=== PATIENT | female | born 1925 | race Caucasian/White ===

== ENCOUNTER 2016-08-08 11:57 | Emergency (ER) | payer MEDICARE ==
--- NOTE | 2016-08-08 12:09 | ER Document Report ---
ED Medical Screen (RME) - General Stated Complaint: FALL/HEAD INJURY Notes: 89 yo female tripped and fell at home. hit mouth. has 1in lac to lower lip, through and through. no LOC. bleeding controlled with ice pack. pt on eliquis. hx/o SD, DVT and DM TRAVEL OUTSIDE OF THE [place] IN LAST 30 DAYS: No - Related Data Allergies/Adverse Reactions: No Known Allergies Allergy (Verified 10/27/14 17:22) Past Medical History - Past Medical History Cardiac Medical History: Reports: Hx Hypertension Denies: Hx Heart Attack Neurological Medical History: Denies: Hx Cerebrovascular Accident Endocrine Medical History: Reports: Hx Diabetes Mellitus Type 2 - Immunizations Hx Diphtheria, Pertussis, Tetanus Vaccination: Yes
--- NOTE | 2016-08-08 14:38 | ER Document Report ---
ED Fall - General Chief Complaint: Laceration Stated Complaint: FALL/HEAD INJURY Time seen by provider: 14:38 Mode of Arrival: Ambulatory Information source: Patient Notes: 89-year-old female was cleaning a coffee table and fell into it, presents to the emergency room with teeth soreness and a laceration to the lip. TRAVEL OUTSIDE OF THE [place] IN LAST 30 DAYS: No - HPI Occurred: Just prior to arrival Where: Home Context: Lost balance Associated symptoms: denies: Lost consciousness, Dazed/confused, Seizure, Difficulty breathing, Became dizzy/fainted, Blood in stool Location of injury/pain: Face Quality of pain: No pain Severity: None Pain Level: Denies - Related data Allergies/Adverse Reactions: No Known Allergies Allergy (Verified 10/27/14 17:22) Past Medical History - General Information source: Patient - Social History Smoking Status: Never Smoker Cigarette use (# per day): No Chew tobacco use (# tins/day): No Frequency of alcohol use: None Drug Abuse: None Lives with: Family Family History: Reviewed & Not Pertinent Patient has suicidal ideation: No Patient has homicidal ideation: No - Past Medical History Cardiac Medical History: Reports: Hx Hypertension Denies: Hx Heart Attack Neurological Medical History: Denies: Hx Cerebrovascular Accident Endocrine Medical History: Reports: Hx Diabetes Mellitus Type 2 Renal/ Medical History: Denies: Hx Peritoneal Dialysis Surgical Hx: Other - Noncontributory - Immunizations Hx Diphtheria, Pertussis, Tetanus Vaccination: Yes Review of Systems - Review of Systems Constitutional: denies: Chills, Fever EENT: See HPI Cardiovascular: No symptoms reported Respiratory: No symptoms reported Gastrointestinal: No symptoms reported Genitourinary: No symptoms reported Female Genitourinary: No symptoms reported Musculoskeletal: See HPI Skin: No symptoms reported Hematologic/Lymphatic: No symptoms reported Neurological/Psychological: No symptoms reported Physical Exam - Vital signs Vitals: Temp Pulse Resp BP Pulse Ox 98.0 F 70 18 119/58 L 98 08/08/16 12:40 08/08/16 12:40 08/08/16 12:40 08/08/16 12:40 08/08/16 12:40 Notes: Physical exam: GENERAL: 89-year-old female, alert and oriented 3 HEAD: Normocephalic. EYES: Pupils equal round and reactive to light, extraocular movements intact, sclera anicteric, conjunctiva are normal. ENT: Patient has a 4 cm laceration to the lip. The patient has a second laceration approximately 4 cm below the lower lip and the skin line. The lacerations do meet. The patient does complain of some tenderness to the incisors upper and lower. There is no obvious loose teeth or alveolar fractures by palpation. NECK: Normal range of motion, supple without lymphadenopathy. LUNGS: Breath sounds clear to auscultation bilaterally and equal. No wheezes rales or rhonchi. HEART: Regular rate and rhythm without murmurs, rubs or gallops. ABDOMEN: Soft, normoactive bowel sounds. No tenderness to palpation. No guarding, no rebound. No masses appreciated. EXTREMITIES: Normal range of motion, no pitting or edema. No clubbing or cyanosis. NEUROLOGICAL: Cranial nerves II through XII grossly intact. Normal speech, normal gait. PSYCH: Normal mood, normal affect. SKIN: As mentioned above under face Course - Vital Signs Vital signs: Temp Pulse Resp BP Pulse Ox 98.4 F 72 20 145/81 H 98 08/08/16 16:34 08/08/16 16:34 08/08/16 16:34 08/08/16 16:34 08/08/16 16:34 - Diagnostic Test Radiology reviewed: Image reviewed, Reports reviewed - CT of the head shows no acute bleed. CT of the face shows no obvious facial fractures. Procedures - Laceration/Wound Repair Face Time completed: 17:00 - laceration to the lip. Wound length (cm): 4 Wound's Depth, Shape: Linear Laceration pre-procedure: Chloraprep applied, Sterile drapes applied, Shur- Clens applied Anesthetic type: 1% Lidocaine Volume Anesthetic (mLs): 5 Wound explored: No foreign body removed Irrigated w/ Saline (mLs): 500 Wound Debrided: Minimal Wound Repaired With: Sutures Suture Size/Type: 5:0, Vicryl Number of Sutures: 7 Layer Closure?: No Post-procedure NV exam normal: Yes Complications: No Lower Face Time completed: 17:00 Wound length (cm): 4 Wound's Depth, Shape: Into muscle Laceration pre-procedure: Betadine prep applied, Chloraprep applied, Sterile drapes applied, Shur-Clens applied Anesthetic type: 1% Lidocaine Volume Anesthetic (mLs): 4 Wound explored: No foreign body removed Irrigated w/ Saline (mLs): 500 Wound Debrided: Minimal Wound Repaired With: Sutures, Dermabond Suture Size/Type: 6:0, Nylon Number of Sutures: 6 Post-procedure NV exam normal: Yes Complications: No Discharge - Discharge Clinical Impression: lip laceration, face laceration, status post fall Condition: Stable Disposition: HOME, SELF-CARE Instructions: Laceration Care ([facility]), Prophylactic Antibiotic ([facility]) Additional Instructions: Recommendations: Keep the sutures dry. It was 7 sutures placed on the lip: These are dissolvable sutures. There are 6 sutures underneath the lip which will require removal in 7 days. Expect some oozing: You can cover with pads and ice packs tonight. Return to the emergency room for any concerns of worsening swelling or worsening bleeding. Follow-up with your dentist: I would call for an appointment after the sutures are taken out (give the wound a little time to heal): Unless you detect any worsening looseness of the teeth. Prescriptions: Cephalexin Monohydrate [Keflex 500 mg Capsule] 500 mg PO QID #20 capsule Forms: Follow up (Sutures/Sosa) Referrals: VALERI GARCIA MD [Primary Care Provider] - Follow up as needed
[2016-08-08] MEDS ORDERED: LIDOCAINE 1% INJ-PF (10 MG/ML) 30 ML SDV INJ ONE (14:58)
[2016-08-08 16:38] VITALS: BP 145/81
== END 2016-08-08 16:38 | disposition home or self-care (01) ==
LOC: ER 11:57
PROC: 0HQ1XZZ Repair Face Skin, External Approach (ICD-10-PCS; principal; 2016-08-08)
PROC: 0CQ1XZZ Repair Lower Lip, External Approach (ICD-10-PCS; 2016-08-08)
DX: S01.511A Laceration without foreign body of lip, initial encounter (principal); S01.81XA Laceration without foreign body of other part of head, initial encounter; W19.XXXA Unspecified fall, initial encounter
CPT/HCPCS: 99284; 70450; 70486; 12054; J3490

== ENCOUNTER 2016-09-10 11:07 | Inpatient (IN) | payer MEDICARE ==
[2016-09-10] MEDS ORDERED: ACETAMINOPHEN 325 MG TABLET PO ONE (11:45)
--- NOTE | 2016-09-10 11:45 | ER Document Report ---
ED Extremity Problem, Upper - General Time seen by provider: 11:44 Mode of Arrival: Medic Information source: Patient, Emergency Med Personnel TRAVEL OUTSIDE OF THE [place] IN LAST 30 DAYS: No - HPI Patient complains to provider of: Injury, Wrist Associated symptoms: Other - See above <ASIA SANDY - Last Filed: 09/10/16 16:00> <ALEXANDRA DELANEY - Last Filed: 09/10/16 19:52> - General Chief Complaint: Wrist Injury Stated Complaint: fall, wrist injury Notes: Patient is an 89 year old female, with a past medical history including dementia , who presents to the emergency department via EMS after a fall complaining of an injury to her right wrist. Patient also complains of pain in her shoulders which she states is chronic. Patient denies pain elsewhere. Patient lives alone and family has not found care facility yet. (ASIA SANDY) - Related Data Allergies/Adverse Reactions: No Known Allergies Allergy (Verified 10/27/14 17:22) Home Medications: Current Home Medications Acetaminophen [Tylenol 325 mg Tablet] 650 mg PO Q4HP PRN 09/10/16 [History] Alendronate Sodium [Fosamax 70 mg Tablet] 70 mg PO MO@1000 09/10/16 [History] Apixaban [Eliquis 2.5 mg Tablet] 2.5 mg PO BID 09/10/16 [History] Atorvastatin Calcium [Lipitor 10 mg Tablet] 10 mg PO QHS 09/10/16 [History] Cholecalciferol (Vitamin D3) [Vitamin D3 400 Unit Tablet] 1,200 unit PO DAILY [History] Fenofibrate Nanocrystallized [Triglide] 160 mg PO DAILY 09/10/16 [History] Losartan Potassium [Cozaar 50 mg Tablet] 50 mg PO DAILY 09/10/16 [History] Sertraline HCl [Zoloft 50 mg Tablet] 50 mg PO QHS 09/10/16 [History] Sitagliptin Phosphate [Januvia 50 mg Tablet] 100 mg PO DAILY 09/10/16 [History] Past Medical History - General Information source: Patient - Social History Smoking Status: Unknown if Ever Smoked Family History: Reviewed & Not Pertinent - Past Medical History Cardiac Medical History: Reports: Hx Hypertension Endocrine Medical History: Reports: Hx Diabetes Mellitus Type 2 Psychiatric Medical History: Reports: Hx Dementia - Immunizations Hx Diphtheria, Pertussis, Tetanus Vaccination: Yes <ASIA SANDY - Last Filed: 09/10/16 16:00> Review of Systems - Review of Systems Constitutional: No symptoms reported EENT: No symptoms reported Cardiovascular: No symptoms reported Respiratory: No symptoms reported Gastrointestinal: No symptoms reported Genitourinary: No symptoms reported Female Genitourinary: No symptoms reported Musculoskeletal: See HPI, Joint pain - shoulders, Deformity - right wrist Skin: No symptoms reported Hematologic/Lymphatic: No symptoms reported Neurological/Psychological: No symptoms reported -: Yes All other systems reviewed and negative <ASIA SANDY - Last Filed: 09/10/16 16:00> Physical Exam - Vital signs Interpretation: Normal - General General appearance: Appears well, Alert - HEENT Head: Other - C-collar in place - Respiratory Respiratory status: No respiratory distress Chest status: Nontender Breath sounds: Normal Chest palpation: Normal - Cardiovascular Rhythm: Regular Heart sounds: Normal auscultation Murmur: No - Abdominal Inspection: Normal Distension: No distension Bowel sounds: Normal Tenderness: Nontender Organomegaly: No organomegaly - Extremities General lower extremity: Normal inspection Shoulder: Tender - bilaterally, chronic Arm: Other - Ecchymosis and swelling to right wrist, hand, and elbow. Upper right arm normal exam Thigh: Nontender - Neurological Neuro grossly intact: Yes Cognition: Normal Chuck Coma Scale Eye Opening: Spontaneous Chuck Coma Scale Verbal: Oriented Coyote Coma Scale Motor: Obeys Commands Coyote Coma Scale Total: 15 Speech: Normal - Psychological Associated symptoms: Normal affect, Normal mood - Skin Skin Temperature: Warm Skin Moisture: Dry Skin Color: Normal <ASIA SANDY - Last Filed: 09/10/16 16:00> Course - Laboratory Result Diagrams: 09/10/16 12:33 09/10/16 12:33 - Consults Dr. [place] Time consulted: 15:50 <ASIA SANDY - Last Filed: 09/10/16 16:00> - Laboratory Result Diagrams: 09/10/16 12:33 09/10/16 12:33 <ALEXANDRA DELANEY - Last Filed: 09/10/16 19:52> - Re-evaluation Re-evalutation: 09/10/16 14:10 Patient is an 89-year-old female who comes in confused. Patient had a fall today. Patient has a right wrist fracture. Patient was limited has dementia. I do not feel that it is safe to her to go home with her confused state and new broken arm. Patient has been discussed with this hospital service and also social work. She'll be admitted for further evaluation. Stable time of admission. Family agrees with this plan. (ALEXANDRA DELANEY) - Vital Signs Vital signs: Temp Pulse Resp BP Pulse Ox 97.6 F 91 19 103/54 L 98 09/10/16 19:04 09/10/16 11:12 09/10/16 19:01 09/10/16 19:01 09/10/16 14:01 - Laboratory Laboratory results interpreted by me: 09/10/16 09/10/16 09/10/16 12:33 12:33 12:33 WBC 11.9 H RBC 3.16 L Hgb 9.1 L Hct 27.6 L RDW 15.1 H Seg Neutrophils % 87.7 H Lymphocytes % 7.4 L Absolute Neutrophils 10.5 H PT 16.5 H Chloride 109 H Creatinine 1.28 H Est GFR ( Amer) 48 L Est GFR (Non-Af Amer) 39 L Glucose 123 H AST 39 H Albumin 3.3 L TSH 09/10/16 12:33 WBC RBC Hgb Hct RDW Seg Neutrophils % Lymphocytes % Absolute Neutrophils PT Chloride Creatinine Est GFR ( Amer) Est GFR (Non-Af Amer) Glucose AST Albumin TSH 8.55 H - Consults Dr. [place] Reason for consultation: 09/10/16 16:00 Agrees to accept patient as tele observation for an unwitnessed fall (ASIA SANDY) Procedures - Immobilization Right Wrist Pre-Proc Neuro Vasc Exam: Normal Immobilizer type: Sugar tong Performed by: PCT Post-Proc Neuro Vasc Exam: Normal Alignment checked and good: Yes <ALEXANDRA DELANEY - Last Filed: 09/10/16 19:52> Discharge <ASIA SANDY - Last Filed: 09/10/16 16:00> - Discharge Admitting Provider: Hospitalist - [facility] Admitted: Telemetry <ALEXANDRA DELANEY - Last Filed: 09/10/16 19:52> - Discharge Clinical Impression: Encephalopathy, Ambulatory dysfunction, Essential hypertension Anemia Qualifiers: Anemia type: unspecified type Qualified Code(s): D64.9 - Anemia, unspecified Syncope Qualifiers: Syncope type: unspecified Qualified Code(s): R55 - Syncope and collapse Radius fracture Qualifiers: Encounter type: initial encounter Radius location: distal Fracture type: closed Fracture alignment: displaced Laterality: right Condition: Stable Disposition: ADMITTED INPATIENT Scribe Attestation: 09/10/16 19:52 I personally performed the services described in the documentation, reviewed and edited the documentation which was dictated to the scribe in my presence, and it accurately records my words and actions. (ALEXANDRA DELANEY) Scribe Documentation - Scribe Written by Orlando:: orlando Pate, 09/10/16, 1224 acting as scribe for :: [place] <ASIA SANDY - Last Filed: 09/10/16 16:00>
[2016-09-10 12:45] LABS: ABSOLUTE LYMPHOCYTES (AUTO) 0.9 10^3/uL (0.5-4.7); ABSOLUTE MONOCYTES (AUTO) 0.6 10^3/uL (0.1-1.4); ABSOLUTE NEUT (AUTO) 10.5 10^3/uL (1.7-8.2); BASOPHILS % (AUTO) 0.1 % (0-2); EOSINOPHILS % (AUTO) 0.1 % (0-6); HEMATOCRIT 27.6 % (36.0-47.0); HEMOGLOBIN 9.1 g/dL (12.0-15.5); HGB HCT DIFFERENCE -0.3; LYMPHOCYTES % (AUTO) 7.4 % (13-45); MEAN CORPUSCULAR HEMOGLOBIN 28.8 pg (27.0-33.4); MEAN CORPUSCULAR HGB CONC 32.9 g/dL (32.0-36.0); MEAN CORPUSCULAR VOLUME 87 fl (80-97); MONOCYTES % (AUTO) 4.7 % (3-13); RED BLOOD COUNT 3.16 10^6/uL (3.72-5.28); RED CELL DISTRIBUTION WIDTH 15.1 % (11.5-14.0); SEGMENTED NEUTROPHILS % (AUTO) 87.7 % (42-78); WHITE BLOOD COUNT 11.9 10^3/uL (4.0-10.5)
[2016-09-10 12:52] LABS: PROTHROMBIN TIME 16.5 SEC (11.4-15.4)
--- NOTE | 2016-09-10 12:53 | EKG REPORT ---
SEVERITY:- OTHERWISE NORMAL ECG - SINUS RHYTHM LEFT AXIS DEVIATION : Confirmed by: Brittany Livingston MD 10-Sep-2016 12:52:06
[2016-09-10 12:57] LABS: ALANINE AMINOTRANSFERASE 26 U/L (9-52); ALBUMIN 3.3 g/dL (3.5-5.0); ALKALINE PHOSPHATASE 65 U/L (38-126); ANION GAP 11 (5-19); ASPARTATE AMINO TRANSFERASE 39 U/L (14-36); BILIRUBIN,DIRECT 0.4 mg/dL (0.0-0.4); BILIRUBIN,TOTAL 1.1 mg/dL (0.2-1.3); BLOOD UREA NITROGEN 18 mg/dL (7-20); CALCIUM 9.5 mg/dL (8.4-10.2); CARBON DIOXIDE 22 mmol/L (22-30); CHLORIDE 109 mmol/L (98-107); CREATINE KINASE 126 U/L (30-135); CREATININE RESULT 1.28 mg/dL (0.52-1.25); GLUCOSE 123 mg/dL (75-110); POTASSIUM 4.9 mmol/L (3.6-5.0); SODIUM 142.3 mmol/L (137-145); TOTAL PROTEIN 6.5 g/dL (6.3-8.2)
[2016-09-10 13:09] LABS: CREATINE KINASE MB 1.03 ng/mL (<4.55)
[2016-09-10 13:12] LABS: TROPONIN I < 0.012 ng/mL
[2016-09-10 14:38] LABS: APPEARANCE,URINE CLEAR; BILIRUBIN,URINE NEGATIVE (NEGATIVE); GLUCOSE, URINE NEGATIVE (NEGATIVE); KETONES,URINE NEGATIVE (NEGATIVE); LEUKOCYTE ESTERASE,URINE NEGATIVE (NEGATIVE); NITRITE,URINE NEGATIVE (NEGATIVE); PROTEIN,URINE NEGATIVE (NEGATIVE); UROBILINOGEN,URINE NEGATIVE mg/dL (<2.0)
[2016-09-10] MEDS ORDERED: ACETAMINOPHEN 325 MG TABLET PO PRN (16:39)
[2016-09-10] MEDS ORDERED: ONDANSETRON 4 MG TAB.RAPDIS PO PRN (16:39)
[2016-09-10] MEDS ORDERED: ONDANSETRON HCL INJ/PF 4 MG/2 ML SDV IV PRN (16:39)
[2016-09-10] MEDS ORDERED: INSULIN LISPRO 100 UNIT/ML 3 ML VIAL SUBCUT PRN (16:47)
[2016-09-10] MEDS ORDERED: GLUCAGON,HUMAN RECOMB 1 MG INJ IM PRN (16:47)
[2016-09-10] MEDS ORDERED: DEXTROSE 50%-WATER 25 GM/50 ML DISP.SYRIN IV PRN ×2 (16:47)
[2016-09-10] MEDS ORDERED: DEXTROSE 40% GEL 15 GM TUBE PO PRN ×2 (16:47)
[2016-09-10] MEDS ORDERED: ALENDRONATE SODIUM 10 MG TABLET PO PRN (16:59)
[2016-09-10] MEDS ORDERED: (PENDING PHARMACY ID) (Alendronate Sodium [Fosamax] 70 MG) PO SCH (17:00)
--- NOTE | 2016-09-10 17:04 | PDOC H&P ---
History of Present Illness Admission Date/PCP: 09/10/2016. Primary care is Dr. Frank Patient complains of: Worsening confusion and right wrist fracture. History of Present Illness: OTILIA RAUSCH is a 89 year old female who lives alone who presents after having a fall and a questionable syncopal episode. The patient's in June. Since that time the patient has had a rapid decline. The patient had minimal memory problems prior to his but since that time has had a progressive worsening of her mental status and memory. The patient hallucinates and reports that she's had people in leather they come to her house every night and in her house but do not speak to her. She reports they' ve also been interviewing her neighbors homes also. She has been diagnosed with depression has been on Zoloft since the of her . Patient last night fell and fractured her right wrist. Patient is uncertain as to whether she might have actually lost consciousness. History taking from her is deemed to not be reliable however her son is at the bedside. He has noticed a steady decline in her mentation over the last several months. Patient has had problems in the past with urinary tract infections causing her to become encephalopathic. The patient however does not have an obvious source of infection today. Patient has not been checking her blood sugars and states she did not even know that she had diabetes. She denies have any palpitations or tachycardia. She denies any chest pain or shortness of breath. She does have complex a headache after her fall. Past Medical History Cardiac Medical History: Reports: Coronary Artery Disease - History of SC one year ago, Hypertension Pulmonary Medical History: Reports: None EENT Medical History: Reports: None Neurological Medical History: Reports: Other - Memory loss. Endocrine Medical History: Reports: Diabetes Mellitus Type 2 Renal/ Medical History: Reports: Nephrolithiasis Malignancy Medical History: Reports: None GI Medical History: Reports: None Psychiatric Medical History: Reports: Dementia, Depression Infectious Medical History: Reports: None Past Surgical History Past Surgical History: Reports: None Social History Information Source: Relative Lives with: Alone Smoking Status: Never Smoker Frequency of Alcohol Use: None Hx Recreational Drug Use: No Drugs: None Hx Prescription Drug Abuse: No - Advance Directive Resuscitation Status: Full Code Surrogate healthcare decision maker:: Her son. Family History Family History: Both of her parents lived to be in their 80s. Had no chronic health problems. Parental Family History Reviewed: Yes Children Family History Reviewed: No Sibling(s) Family History Reviewed.: No Medication/Allergy Home Medications: Alendronate Sodium [Fosamax] 70 mg PO Q7D 10/27/14 Donepezil HCl 10 mg PO DAILY 10/27/14 Fenofibrate 160 mg PO DAILY 10/27/14 Glipizide [Glipizide ER] 2.5 mg PO DAILY 10/27/14 Losartan Potassium 50 mg PO DAILY 10/27/14 Sertraline HCl 50 mg PO QHS 10/27/14 Cholecalciferol (Vitamin D3) [Vitamin D3] 1,200 unit PO 10/29/14 Acetaminophen [Tylenol 325 mg Tablet] 650 mg PO Q4HP PRN #0 tablet 11/03/14 Cefuroxime Axetil [Ceftin 500 mg Tablet] 500 mg PO 1000,2200 #10 tablet Cephalexin Monohydrate [Keflex 500 mg Capsule] 500 mg PO QID #20 capsule Allergies/Adverse Reactions: No Known Allergies Allergy (Verified 10/27/14 17:22) Review of Systems ROS unobtainable: Due to mental status Physical Exam Vital Signs: Temp Pulse Resp BP Pulse Ox 97.5 F 91 17 153/133 H 98 09/10/16 11:12 09/10/16 11:12 09/10/16 15:02 09/10/16 15:02 09/10/16 14:01 General appearance: PRESENT: no acute distress Head exam: PRESENT: other - Some minor bruising around her head. Eye exam: PRESENT: conjunctiva pink, EOMI, PERRLA. ABSENT: scleral icterus Ear exam: PRESENT: normal external ear exam Mouth exam: PRESENT: moist, tongue midline Neck exam: ABSENT: carotid bruit, JVD, lymphadenopathy, thyromegaly Respiratory exam: PRESENT: clear to auscultation steffi. ABSENT: rales, rhonchi, wheezes Cardiovascular exam: PRESENT: RRR. ABSENT: diastolic murmur, rubs, systolic murmur Pulses: PRESENT: normal dorsalis pedis pul Vascular exam: PRESENT: normal capillary refill GI/Abdominal exam: PRESENT: normal bowel sounds, soft. ABSENT: distended, guarding, mass, organolmegaly, rebound, tenderness Rectal exam: PRESENT: deferred Extremities exam: ABSENT: calf tenderness, clubbing, pedal edema Neurological exam: PRESENT: alert, awake, oriented to person, oriented to place , CN II-XII grossly intact. ABSENT: oriented to time, oriented to situation, motor sensory deficit Psychiatric exam: PRESENT: other Focused psych exam: PRESENT: delusional, restlessness Skin exam: PRESENT: abrasion - Patient's multiple abrasions on her legs, erythema - On her left churchill. Results Laboratory Results: 09/10/16 12:33 09/10/16 12:33 09/10/16 09/10/16 09/10/16 12:33 12:33 14:14 WBC 11.9 H RBC 3.16 L Hgb 9.1 L Hct 27.6 L MCV 87 MCH 28.8 MCHC 32.9 RDW 15.1 H Plt Count 344 Seg Neutrophils % 87.7 H Lymphocytes % 7.4 L Monocytes % 4.7 Eosinophils % 0.1 Basophils % 0.1 Absolute Neutrophils 10.5 H Absolute Lymphocytes 0.9 Absolute Monocytes 0.6 Absolute Eosinophils 0.0 Absolute Basophils 0.0 Sodium 142.3 Potassium 4.9 Chloride 109 H Carbon Dioxide 22 Anion Gap 11 BUN 18 Creatinine 1.28 H Est GFR ( Amer) 48 L Est GFR (Non-Af Amer) 39 L Glucose 123 H Calcium 9.5 Total Bilirubin 1.1 AST 39 H ALT 26 Alkaline Phosphatase 65 Total Protein 6.5 Albumin 3.3 L Urine Color YELLOW Urine Appearance CLEAR Urine pH 6.0 Ur Specific [place] 1.010 Urine Protein NEGATIVE Urine Glucose (UA) NEGATIVE Urine Ketones NEGATIVE Urine Blood NEGATIVE Urine Nitrite NEGATIVE Ur Leukocyte Esterase NEGATIVE Urine WBC (Auto) 0 Urine RBC (Auto) 0 09/10/16 09/10/16 12:33 12:33 Creatine Kinase 126 CK-MB (CK-2) 1.03 Troponin I < 0.012 Impressions: Wrist X-Ray 09/10/16 00:00 IMPRESSION: IMPACTED FRACTURE OF THE DISTAL RADIUS. Cervical Spine CT 09/10/16 11:32 IMPRESSION: CHRONIC DEGENERATIVE CHANGES. NO ACUTE FINDINGS. Chest X-Ray 09/10/16 11:32 IMPRESSION: COPD. NO ACUTE RADIOGRAPHIC FINDING IN THE CHEST. Head CT 09/10/16 11:32 IMPRESSION: CHRONIC CHANGES OF ATROPHY AND MICROVASCULAR ISCHEMIA. NO ACUTE PROCESS. Assessment & Plan - Diagnosis (1) Syncope Is this a current diagnosis for this admission?: YesPlan: The patient may have had a syncopal episode. We will monitor on cardiac telemetry to make certain she is not having cardiac arrhythmias as a cause. She does have a history of coronary artery disease and had an SC a year ago. She denies having any chest pain however. (2) Encephalopathy Is this a current diagnosis for this admission?: YesPlan: The patient is confused. She carries a diagnosis of depression and dementia. It seems that most of her memory loss occurred very rapidly after the of her in June. I'm concerned this may actually be depression with some psychotic features given her unusual hallucinations of men in leather coming into her house every night. She is already on Zoloft and we will continue with that. Will obtain an MRI of the brain to make certain she's not had any type of acute intracranial event. Will ask psychiatry to evaluate to see whether or not this may be depression with psychotic features. (3) Anemia Is this a current diagnosis for this admission?: Yes (4) Dementia Is this a current diagnosis for this admission?: YesPlan: Is not clear how much of this dementia or may be related to her depression. She is on Aricept and we will continue with that. (5) DM w/o complication type II Is this a current diagnosis for this admission?: YesPlan: We'll cover with sliding scale insulin and hold her oral hypoglycemic agents. (6) Essential hypertension Is this a current diagnosis for this admission?: YesPlan: Continue with the losartan - Time Time Spent: 50 to 70 Minutes - Inpatient Certification Medical Necessity: Need Close Monitoring Due to Risk of Patient Decompensation, Need For Continuous Telemetry Monitoring
[2016-09-10 18:15] LABS: THYROID STIMULATING HORMONE 8.55 uIU/mL (0.47-4.68)
[2016-09-10] MEDS ORDERED: LEVOTHYROXINE SODIUM 0.025 MG TABLET PO ONE (19:00)
[2016-09-10] MEDS ORDERED: ENOXAPARIN SODIUM INJ 30 MG/0.3 ML DISP.SYRIN SUBCUT ONE (20:30)
[2016-09-10] MEDS: FAMOTIDINE 20 MG TABLET PO SCH (21:19)
[2016-09-10] MEDS: SERTRALINE HCL 50 MG TABLET PO SCH (21:19)
[2016-09-11 04:39] LABS: HEMATOCRIT 26.4 % (36.0-47.0); HGB HCT DIFFERENCE 0.6; MEAN CORPUSCULAR HEMOGLOBIN 29.2 pg (27.0-33.4); MEAN CORPUSCULAR VOLUME 86 fl (80-97); RED BLOOD COUNT 3.06 10^6/uL (3.72-5.28); RED CELL DISTRIBUTION WIDTH 15.5 % (11.5-14.0)
[2016-09-11 05:04] LABS: ANION GAP 11 (5-19); BLOOD UREA NITROGEN 19 mg/dL (7-20); CALCIUM 9.4 mg/dL (8.4-10.2); CARBON DIOXIDE 20 mmol/L (22-30); CHLORIDE 110 mmol/L (98-107); GLUCOSE 112 mg/dL (75-110); MAGNESIUM 1.7 mg/dL (1.6-2.3); POTASSIUM 4.4 mmol/L (3.6-5.0); SODIUM 140.9 mmol/L (137-145)
[2016-09-11] MEDS ORDERED: ENOXAPARIN SODIUM INJ 40 MG/0.4 ML DISP.SYRIN SUBCUT SCH (08:00)
[2016-09-11] MEDS ORDERED: (PENDING PHARMACY ID) (Donepezil Hcl [Donepezil Hcl] 10 MG) PO SCH (10:00)
[2016-09-11] MEDS ORDERED: (PENDING PHARMACY ID) (Fenofibrate [Fenofibrate] 160 MG) PO SCH (10:00)
[2016-09-11] MEDS: LEVOTHYROXINE SODIUM 0.025 MG TABLET PO SCH (10:58)
[2016-09-11] MEDS: LOSARTAN POTASSIUM 50 MG TABLET PO SCH (10:58)
[2016-09-11] MEDS: FAMOTIDINE 20 MG TABLET PO SCH ×2 (10:59→22:17)
[2016-09-11] MEDS: FENOFIBRATE NANOCRYSTALLIZED 145 MG TABLET PO SCH (10:59)
[2016-09-11] MEDS: DONEPEZIL HCL 5 MG TABLET PO SCH (10:59)
[2016-09-11] MEDS: ENOXAPARIN SODIUM INJ 30 MG/0.3 ML DISP.SYRIN SUBCUT SCH (10:59)
--- NOTE | 2016-09-11 12:38 | PDOC PROGRESS REPORT ---
Subjective Progress Note for:: 09/11/16 Subjective:: Denies any complaints. Brain MRI shows an acute CVA. Physical Exam Vital Signs: Temp Pulse Resp BP Pulse Ox 97.4 F 71 16 133/69 H 99 09/11/16 07:29 09/11/16 07:29 09/11/16 07:29 09/11/16 07:29 09/11/16 07:29 Intake & Output 09/10/16 09/11/16 09/12/16 06:59 06:59 06:59 Weight 58.9 kg General appearance: PRESENT: no acute distress Eye exam: PRESENT: conjunctiva pink. ABSENT: scleral icterus Ear exam: PRESENT: normal external ear exam Neck exam: ABSENT: JVD Respiratory exam: PRESENT: clear to auscultation steffi. ABSENT: rales, rhonchi, wheezes Cardiovascular exam: PRESENT: RRR. ABSENT: diastolic murmur, rubs, systolic murmur GI/Abdominal exam: PRESENT: normal bowel sounds, soft. ABSENT: distended, guarding, mass, organolmegaly, rebound, tenderness Extremities exam: ABSENT: calf tenderness, clubbing, pedal edema Neurological exam: PRESENT: alert, awake, oriented to person, oriented to place , CN II-XII grossly intact. ABSENT: oriented to time, oriented to situation, motor sensory deficit Psychiatric exam: PRESENT: other Focused psych exam: PRESENT: delusional Skin exam: PRESENT: dry, intact, warm. ABSENT: cyanosis, rash Results Laboratory Results: 09/11/16 04:18 09/11/16 04:18 09/11/16 09/11/16 04:18 04:18 WBC 8.0 RBC 3.06 L Hgb 9.0 L Hct 26.4 L MCV 86 MCH 29.2 MCHC 34.0 RDW 15.5 H Plt Count 322 Sodium 140.9 Potassium 4.4 Chloride 110 H Carbon Dioxide 20 L Anion Gap 11 BUN 19 Creatinine 1.20 Est GFR ( Amer) 51 L Est GFR (Non-Af Amer) 42 L Glucose 112 H Calcium 9.4 Magnesium 1.7 Impressions: Wrist X-Ray 09/10/16 00:00 IMPRESSION: IMPACTED FRACTURE OF THE DISTAL RADIUS. Cervical Spine CT 09/10/16 11:32 IMPRESSION: CHRONIC DEGENERATIVE CHANGES. NO ACUTE FINDINGS. Chest X-Ray 09/10/16 11:32 IMPRESSION: COPD. NO ACUTE RADIOGRAPHIC FINDING IN THE CHEST. Head CT 09/10/16 11:32 IMPRESSION: CHRONIC CHANGES OF ATROPHY AND MICROVASCULAR ISCHEMIA. NO ACUTE PROCESS. Head MRI 09/10/16 16:45 IMPRESSION: Positive for acute 7 mm lacunar infarction in the posterior left periventricular white matter in the left occipital-parietal region. Assessment & Plan - Diagnosis (1) Syncope Qualifiers: Syncope type: unspecified Qualified Code(s): R55 - Syncope and collapse Is this a current diagnosis for this admission?: YesPlan: The patient may have had a syncopal episode. We will monitor on cardiac telemetry to make certain she is not having cardiac arrhythmias as a cause. She does have a history of coronary artery disease and had an NM a year ago. She denies having any chest pain however. (2) Encephalopathy Is this a current diagnosis for this admission?: YesPlan: The patient is confused. She carries a diagnosis of depression and dementia. It seems that most of her memory loss occurred very rapidly after the of her in June. I'm concerned this may actually be depression with some psychotic features given her unusual hallucinations of men in leather coming into her house every night. She is already on Zoloft and we will continue with that. Will obtain an MRI of the brain to make certain she's not had any type of acute intracranial event. Will ask psychiatry to evaluate to see whether or not this may be depression with psychotic features. (3) Anemia Qualifiers: Anemia type: unspecified type Qualified Code(s): D64.9 - Anemia, unspecified Is this a current diagnosis for this admission?: Yes (4) Dementia Is this a current diagnosis for this admission?: YesPlan: Is not clear how much of this dementia or may be related to her depression. She is on Aricept and we will continue with that. (5) DM w/o complication type II Is this a current diagnosis for this admission?: YesPlan: We'll cover with sliding scale insulin and hold her oral hypoglycemic agents. (6) Essential hypertension Is this a current diagnosis for this admission?: YesPlan: Continue with the losartan (7) Hypothyroidism Is this a current diagnosis for this admission?: YesPlan: A she was started on Synthroid yesterday. This is a new diagnosis. (8) CVA (cerebral vascular accident) Is this a current diagnosis for this admission?: YesPlan: Patient has an acute CVA on the MRI. We'll get a carotid Doppler and echocardiogram. Continue with aspirin. - Time Time Spent with patient: 25-34 minutes - Inpatient Certification Medical Necessity: Need Close Monitoring Due to Risk of Patient Decompensation
[2016-09-11] MEDS: HALOPERIDOL 2 MG TABLET PO PRN (16:43)
--- NOTE | 2016-09-11 20:54 | XCELERA REPORT ---
[address] [address] Transthoracic Echocardiogram Report Name: OTILIA RAUSCH Age: 89 yrs Gender: Female : 1925 Patient Status: Inpatient Patient Location: [id number]\S\421\S\B Study Date: 09/11/2016 01:30 PM Height: 63 in Weight: 129 lb BSA: 1.6 m2 Procedure: A complete two-dimensional transthoracic echocardiogram was performed (2D, M-mode, spectral and color flow Doppler). The study was technically difficult with many images being suboptimal in quality. Reason For Study: cva Ordering Physician: PÉREZ LEARY Performed By: Ann Peña Interpretation Summary The Ejection Fraction estimate is 50-55% Left ventricular systolic function is low normal. There is mild concentric left ventricular hypertrophy. The left ventricle is grossly normal size. Doppler measurements suggest impaired left ventricular relaxation, which is associated with grade I/IV or mild diastolic dysfunction Not all wall segments were well visualized. The right ventricular systolic function is normal. The left atrial size is normal. The right atrium is normal in size There is a moderate amount of mitral regurgitation There is no mitral valve stenosis. No aortic regurgitation is present. There is no aortic valve stenosis There is a trace to mild amount of tricuspid regurgitation There is mild pulmonary hypertension by echo Right ventricular systolic pressure is estimated to be elevated at 30- 40mmHg. There is no pericardial effusion. MMode/2D Measurements \T\ Calculations RVDd: 2.2 cm LVIDd: 4.2 cm FS: 28.2 % Ao root diam: 2.2 cm IVSd: 1.1 cm LVIDs: 3.0 cm EDV(Teich): 80.5 ml LVPWd: 1.0 cm ESV(Teich): 36.4 ml Ao root area: 3.7 cm2 EF(Teich): 54.8 % LA dimension: 3.6 cm LVOT diam: 2.0 cm LVOT area: 3.0 cm2 Doppler Measurements \T\ Calculations MV E max giuseppe: MV P1/2t max giuseppe: Ao V2 max: LV V1 max P.4 cm/sec 123.4 cm/sec 149.3 cm/sec 5.4 mmHg MV A max giuseppe: MV P1/2t: 84.6 msec Ao max PG: LV V1 mean P.6 cm/sec MVA(P1/2t): 2.6 cm2 8.9 mmHg 2.2 mmHg MV E/A: 0.68 MV dec slope: Ao V2 mean: LV V1 max: 427.4 cm/sec2 86.5 cm/sec 115.9 cm/sec Ao mean PG: LV V1 mean: 3.6 mmHg 68.3 cm/sec Ao V2 VTI: LV V1 VTI: 26.2 cm 22.4 cm RICARDA(I,D): 2.6 cm2 RICARDA(V,D): 2.3 cm2 MR max giuseppe: SV(LVOT): 67.5 ml PA V2 max: TR max giuseppe: 395.1 cm/sec 88.8 cm/sec 295.9 cm/sec MR max PG: PA max PG: TR max P.5 mmHg 3.2 mmHg 35.0 mmHg Left Ventricle The left ventricle is grossly normal size. There is mild concentric left ventricular hypertrophy. Left ventricular systolic function is low normal. The Ejection Fraction estimate is 50-55%. Doppler measurements suggest impaired left ventricular relaxation, which is associated with grade I/IV or mild diastolic dysfunction. Not all wall segments were well visualized. Right Ventricle The right ventricle is grossly normal size. There is normal right ventricular wall thickness. The right ventricular systolic function is normal. Atria The right atrium is normal in size. The left atrial size is normal. Interarterial septum not well visualized and not well dopplered. Cannot comment on ASD/PFO presence. Mitral Valve There is mild to moderate mitral annular calcification. There is no mitral valve stenosis. There is a moderate amount of mitral regurgitation. Aortic Valve The aortic valve is mildly calcified. There is no aortic valve stenosis. No aortic regurgitation is present. Tricuspid Valve The tricuspid valve is not well visualized secondary to technical limitations. There is no tricuspid stenosis. There is a trace to mild amount of tricuspid regurgitation. There is mild pulmonary hypertension by echo. Right ventricular systolic pressure is estimated to be elevated at 30-40mmHg. Pulmonic Valve The pulmonic valve is not well visualized. Great Vessels The aortic root is not well visualized but is probably normal size. The inferior vena cava was not well visualized. Effusions There is no pericardial effusion. : PÉREZ LEARY > Jed Christensen
[2016-09-11] MEDS: SERTRALINE HCL 50 MG TABLET PO SCH (22:16)
[2016-09-12] MEDS: HALOPERIDOL 2 MG TABLET PO PRN (01:40)
[2016-09-12 05:28] LABS: ABSOLUTE EOSINOPHILS # (AUTO) 0.1 10^3/uL (0.0-0.6); ABSOLUTE LYMPHOCYTES (AUTO) 1.4 10^3/uL (0.5-4.7); ABSOLUTE MONOCYTES (AUTO) 0.6 10^3/uL (0.1-1.4); ABSOLUTE NEUT (AUTO) 5.9 10^3/uL (1.7-8.2); BASOPHILS % (AUTO) 0.6 % (0-2); EOSINOPHILS % (AUTO) 1.7 % (0-6); HEMATOCRIT 25.8 % (36.0-47.0); HEMOGLOBIN 8.9 g/dL (12.0-15.5); HGB HCT DIFFERENCE 0.9; LYMPHOCYTES % (AUTO) 16.9 % (13-45); MEAN CORPUSCULAR HEMOGLOBIN 29.5 pg (27.0-33.4); MEAN CORPUSCULAR HGB CONC 34.4 g/dL (32.0-36.0); MEAN CORPUSCULAR VOLUME 86 fl (80-97); MONOCYTES % (AUTO) 7.2 % (3-13); RED CELL DISTRIBUTION WIDTH 15.1 % (11.5-14.0); SEGMENTED NEUTROPHILS % (AUTO) 73.6 % (42-78)
[2016-09-12 05:49] LABS: ANION GAP 9 (5-19); BLOOD UREA NITROGEN 24 mg/dL (7-20); CALCIUM 9.4 mg/dL (8.4-10.2); CARBON DIOXIDE 23 mmol/L (22-30); CHLORIDE 109 mmol/L (98-107); CREATININE RESULT 1.28 mg/dL (0.52-1.25); GLUCOSE 130 mg/dL (75-110); POTASSIUM 4.3 mmol/L (3.6-5.0); SODIUM 141.1 mmol/L (137-145)
[2016-09-12] MEDS: ENOXAPARIN SODIUM INJ 30 MG/0.3 ML DISP.SYRIN SUBCUT SCH (07:38)
[2016-09-12] MEDS: DONEPEZIL HCL 5 MG TABLET PO SCH (09:30)
[2016-09-12] MEDS: LOSARTAN POTASSIUM 50 MG TABLET PO SCH (09:30)
[2016-09-12] MEDS: FENOFIBRATE NANOCRYSTALLIZED 145 MG TABLET PO SCH (09:30)
[2016-09-12] MEDS: LEVOTHYROXINE SODIUM 0.025 MG TABLET PO SCH (09:30)
[2016-09-12] MEDS: FAMOTIDINE 20 MG TABLET PO SCH ×2 (09:31→21:12)
--- NOTE | 2016-09-12 10:50 | PDOC PROGRESS REPORT ---
Subjective Progress Note for:: 09/12/16 Subjective:: Denies any complaints. Physical Exam Vital Signs: Temp Pulse Resp BP Pulse Ox 98.2 F 74 20 129/66 H 100 09/12/16 07:10 09/12/16 07:10 09/12/16 07:10 09/12/16 07:10 09/12/16 07:10 Intake & Output 09/11/16 09/12/16 09/13/16 06:59 06:59 06:59 Intake Total 660 Output Total 200 Balance 460 Weight 58.9 kg 57.9 kg General appearance: PRESENT: no acute distress Eye exam: PRESENT: conjunctiva pink. ABSENT: scleral icterus Mouth exam: PRESENT: moist, tongue midline Neck exam: ABSENT: JVD Respiratory exam: PRESENT: clear to auscultation steffi. ABSENT: rales, rhonchi, wheezes Cardiovascular exam: PRESENT: RRR. ABSENT: diastolic murmur, rubs, systolic murmur GI/Abdominal exam: PRESENT: normal bowel sounds, soft. ABSENT: distended, guarding, mass, organolmegaly, rebound, tenderness Extremities exam: ABSENT: calf tenderness, clubbing, pedal edema Neurological exam: PRESENT: alert, awake, oriented to person, oriented to place , oriented to time, oriented to situation, CN II-XII grossly intact. ABSENT: motor sensory deficit Psychiatric exam: PRESENT: appropriate affect Skin exam: PRESENT: dry, intact, warm. ABSENT: cyanosis, rash Results Laboratory Results: 09/12/16 05:01 09/12/16 05:01 09/12/16 09/12/16 05:01 05:01 WBC 8.0 RBC 3.00 L Hgb 8.9 L Hct 25.8 L MCV 86 MCH 29.5 MCHC 34.4 RDW 15.1 H Plt Count 316 Seg Neutrophils % 73.6 Lymphocytes % 16.9 Monocytes % 7.2 Eosinophils % 1.7 Basophils % 0.6 Absolute Neutrophils 5.9 Absolute Lymphocytes 1.4 Absolute Monocytes 0.6 Absolute Eosinophils 0.1 Absolute Basophils 0.0 Sodium 141.1 Potassium 4.3 Chloride 109 H Carbon Dioxide 23 Anion Gap 9 BUN 24 H Creatinine 1.28 H Est GFR ( Amer) 48 L Est GFR (Non-Af Amer) 39 L Glucose 130 H Calcium 9.4 Impressions: Wrist X-Ray 09/10/16 00:00 IMPRESSION: IMPACTED FRACTURE OF THE DISTAL RADIUS. Cervical Spine CT 09/10/16 11:32 IMPRESSION: CHRONIC DEGENERATIVE CHANGES. NO ACUTE FINDINGS. Chest X-Ray 09/10/16 11:32 IMPRESSION: COPD. NO ACUTE RADIOGRAPHIC FINDING IN THE CHEST. Head CT 09/10/16 11:32 IMPRESSION: CHRONIC CHANGES OF ATROPHY AND MICROVASCULAR ISCHEMIA. NO ACUTE PROCESS. Head MRI 09/10/16 16:45 IMPRESSION: Positive for acute 7 mm lacunar infarction in the posterior left periventricular white matter in the left occipital-parietal region. Carotid Doppler Study 09/11/16 12:35 IMPRESSION: NO HEMODYNAMICALLY SIGNIFICANT STENOSIS at the carotid bifurcations Antegrade pulsatile vertebral artery flow bilaterally Assessment & Plan - Diagnosis (1) CVA (cerebral vascular accident) Is this a current diagnosis for this admission?: YesPlan: Patient has an acute CVA on the MRI. Carotid Dopplers are normal. Continue with aspirin. (2) Syncope Qualifiers: Syncope type: unspecified Qualified Code(s): R55 - Syncope and collapse Is this a current diagnosis for this admission?: YesPlan: The patient may have had a syncopal episode. We will monitor on cardiac telemetry to make certain she is not having cardiac arrhythmias as a cause. She does have a history of coronary artery disease and had an [place] a year ago. She denies having any chest pain however. (3) Encephalopathy Is this a current diagnosis for this admission?: YesPlan: The patient is confused. This may be related to the untreated hypothyroidism versus dementia. (4) Anemia Qualifiers: Anemia type: unspecified type Qualified Code(s): D64.9 - Anemia, unspecified Is this a current diagnosis for this admission?: Yes (5) Dementia Is this a current diagnosis for this admission?: YesPlan: Is not clear how much of this dementia or may be related to her depression. She is on Aricept and we will continue with that. (6) DM w/o complication type II Is this a current diagnosis for this admission?: YesPlan: We'll cover with sliding scale insulin and hold her oral hypoglycemic agents. (7) Essential hypertension Is this a current diagnosis for this admission?: YesPlan: Continue with the losartan (8) Hypothyroidism Is this a current diagnosis for this admission?: YesPlan: she was started on Synthroid. This is a new diagnosis. - Time Time Spent with patient: 25-34 minutes - Inpatient Certification Medical Necessity: Need Close Monitoring Due to Risk of Patient Decompensation
[2016-09-12] MEDS: SERTRALINE HCL 50 MG TABLET PO SCH (21:12)
[2016-09-13] MEDS: HALOPERIDOL 2 MG TABLET PO PRN (02:50)
[2016-09-13 05:18] LABS: ABSOLUTE BASOPHILS # (AUTO) 0.1 10^3/uL (0.0-0.2); ABSOLUTE EOSINOPHILS # (AUTO) 0.2 10^3/uL (0.0-0.6); ABSOLUTE LYMPHOCYTES (AUTO) 1.7 10^3/uL (0.5-4.7); ABSOLUTE MONOCYTES (AUTO) 0.6 10^3/uL (0.1-1.4); ABSOLUTE NEUT (AUTO) 6.1 10^3/uL (1.7-8.2); BASOPHILS % (AUTO) 0.6 % (0-2); EOSINOPHILS % (AUTO) 2.3 % (0-6); HEMATOCRIT 26.8 % (36.0-47.0); HEMOGLOBIN 8.9 g/dL (12.0-15.5); HGB HCT DIFFERENCE -0.1; LYMPHOCYTES % (AUTO) 20.2 % (13-45); MEAN CORPUSCULAR HEMOGLOBIN 28.9 pg (27.0-33.4); MEAN CORPUSCULAR HGB CONC 33.3 g/dL (32.0-36.0); MEAN CORPUSCULAR VOLUME 87 fl (80-97); MONOCYTES % (AUTO) 6.7 % (3-13); RED CELL DISTRIBUTION WIDTH 14.8 % (11.5-14.0); SEGMENTED NEUTROPHILS % (AUTO) 70.2 % (42-78); WHITE BLOOD COUNT 8.6 10^3/uL (4.0-10.5)
[2016-09-13 05:49] LABS: ANION GAP 14 (5-19); BLOOD UREA NITROGEN 31 mg/dL (7-20); CALCIUM 9.4 mg/dL (8.4-10.2); CARBON DIOXIDE 20 mmol/L (22-30); CHLORIDE 108 mmol/L (98-107); CREATININE RESULT 1.54 mg/dL (0.52-1.25); GLUCOSE 123 mg/dL (75-110); POTASSIUM 4.7 mmol/L (3.6-5.0); SODIUM 142.3 mmol/L (137-145)
[2016-09-13] MEDS: FENOFIBRATE NANOCRYSTALLIZED 145 MG TABLET PO SCH (09:41)
[2016-09-13] MEDS: DONEPEZIL HCL 5 MG TABLET PO SCH (09:41)
[2016-09-13] MEDS: LOSARTAN POTASSIUM 50 MG TABLET PO SCH (09:41)
[2016-09-13] MEDS: LEVOTHYROXINE SODIUM 0.025 MG TABLET PO SCH (09:41)
[2016-09-13] MEDS: ENOXAPARIN SODIUM INJ 30 MG/0.3 ML DISP.SYRIN SUBCUT SCH (09:42)
[2016-09-13] MEDS: FAMOTIDINE 20 MG TABLET PO SCH (09:42)
--- NOTE | 2016-09-13 10:37 | PDOC TRANSFER SUMMARY ---
General - Admit/Disc Date/PCP Admission Date/Primary Care Provider: 09/10/16 16:39 Discharge Date: 09/13/16 - Discharge Diagnosis (1) CVA (cerebral vascular accident) Is this a current diagnosis for this admission?: YesSummary: Patient has been started on aspirin 81 mg daily (2) Syncope Is this a current diagnosis for this admission?: Yes (3) Encephalopathy Is this a current diagnosis for this admission?: YesSummary: Most likely secondary to a combination of some mild baseline dementia along with newly diagnosed hypothyroidism and a new CVA. (4) Anemia Is this a current diagnosis for this admission?: Yes (5) Dementia Is this a current diagnosis for this admission?: Yes (6) DM w/o complication type II Is this a current diagnosis for this admission?: Yes (7) Essential hypertension Is this a current diagnosis for this admission?: Yes (8) Hypothyroidism Is this a current diagnosis for this admission?: Yes - Additional Information Resuscitation Status: Full Code Discharge Diet: Cardiac, Diabetic Discharge Activity: Activity As Tolerated Home Medications: Acetaminophen [Tylenol 325 mg Tablet] 650 mg PO Q4HP PRN 09/10/16 Alendronate Sodium [Fosamax 70 mg Tablet] 70 mg PO MO@1000 09/10/16 Apixaban [Eliquis 2.5 mg Tablet] 2.5 mg PO BID 09/10/16 Atorvastatin Calcium [Lipitor 10 mg Tablet] 10 mg PO QHS 09/10/16 Cholecalciferol (Vitamin D3) [Vitamin D3 400 Unit Tablet] 1,200 unit PO DAILY Fenofibrate Nanocrystallized [Triglide] 160 mg PO DAILY 09/10/16 Losartan Potassium [Cozaar 50 mg Tablet] 50 mg PO DAILY 09/10/16 Sertraline HCl [Zoloft 50 mg Tablet] 50 mg PO QHS 09/10/16 Sitagliptin Phosphate [Januvia 50 mg Tablet] 100 mg PO DAILY 09/10/16 Aspirin 81 mg PO DAILY #30 tab.chew 09/13/16 Levothyroxine Sodium [Synthroid 0.025 mg Tablet] 0.025 mg PO DAILY tablet 09/13 History of Present Illness Admission Date/PCP: 09/10/16 16:39 History of Present Illness: OTILIA RAUSCH is a 89 year old female who lives alone who presents after having a fall and a questionable syncopal episode. The patient's in June. Since that time the patient has had a rapid decline. The patient had minimal memory problems prior to his but since that time has had a progressive worsening of her mental status and memory. The patient hallucinates and reports that she's had people in leather they come to her house every night and in her house but do not speak to her. She reports they' ve also been interviewing her neighbors homes also. She has been diagnosed with depression and has been on Zoloft since the of her . Patient last night fell and fractured her right wrist. Patient is uncertain as to whether she might have actually lost consciousness. History taking from her is deemed to not be reliable however her son is at the bedside. He has noticed a steady decline in her mentation over the last several months. Patient has had problems in the past with urinary tract infections causing her to become encephalopathic. The patient however does not have an obvious source of infection today. Patient has not been checking her blood sugars and states she did not even know that she had diabetes. She denies have any palpitations or tachycardia. She denies any chest pain or shortness of breath. She does have complaints of a headache after her fall. Hospital Course Hospital Course: 82-year-old female who presented after a fall and a fracture of her right wrist. The patient has lived alone since June after the of her . She is a problem with depression and was started on Zoloft. The patient was admitted because of the possibility of syncope as her history was unreliable. During the workup she was found to have had an acute CVA on MRI. The patient also was found to have hypothyroidism with elevated TSH. Both of these may have contributed both to her syncope as well as her change in mental status. She does have some mild baseline dementia. The patient had a carotid Doppler showed no stenosis and an echocardiogram which showed no mural thrombus. The patient was started on Synthroid along with aspirin in addition to her usual medications. The patient was still confused and it was felt that she would benefit from rehabilitation and physical therapy was consulted and the patient will be sent to [facility] for [facility] and possible long-term placement. The patient had a splint placed in the emergency room on her right arm and she will follow-up with orthopedic surgery next week as an outpatient. Physical Exam Vital Signs: Temp Pulse Resp BP Pulse Ox 97.2 F 77 18 127/61 H 99 09/13/16 07:17 09/13/16 07:17 09/13/16 07:17 09/13/16 07:17 09/13/16 07:17 Intake & Output 09/12/16 09/13/16 09/14/16 06:59 06:59 06:59 Intake Total 660 637 Output Total 200 600 Balance 460 37 Weight 57.9 kg 59.1 kg General appearance: PRESENT: no acute distress Eye exam: PRESENT: conjunctiva pink. ABSENT: scleral icterus Mouth exam: PRESENT: moist, tongue midline Neck exam: ABSENT: JVD Respiratory exam: PRESENT: clear to auscultation steffi. ABSENT: rales, rhonchi, wheezes Cardiovascular exam: PRESENT: RRR. ABSENT: diastolic murmur, rubs, systolic murmur GI/Abdominal exam: PRESENT: normal bowel sounds, soft. ABSENT: distended, guarding, mass, organolmegaly, rebound, tenderness Extremities exam: PRESENT: other - Right arm is in a splint.. ABSENT: calf tenderness, clubbing, pedal edema Neurological exam: PRESENT: alert, awake, oriented to person, oriented to place , CN II-XII grossly intact. ABSENT: oriented to time, oriented to situation, motor sensory deficit Psychiatric exam: PRESENT: appropriate affect Results Laboratory Results: 09/13/16 04:45 09/13/16 04:45 09/13/16 09/13/16 04:45 04:45 WBC 8.6 RBC 3.10 L Hgb 8.9 L Hct 26.8 L MCV 87 MCH 28.9 MCHC 33.3 RDW 14.8 H Plt Count 385 Seg Neutrophils % 70.2 Lymphocytes % 20.2 Monocytes % 6.7 Eosinophils % 2.3 Basophils % 0.6 Absolute Neutrophils 6.1 Absolute Lymphocytes 1.7 Absolute Monocytes 0.6 Absolute Eosinophils 0.2 Absolute Basophils 0.1 Sodium 142.3 Potassium 4.7 Chloride 108 H Carbon Dioxide 20 L Anion Gap 14 BUN 31 H Creatinine 1.54 H Est GFR ( Amer) 38 L Est GFR (Non-Af Amer) 32 L Glucose 123 H Calcium 9.4 Impressions: Wrist X-Ray 09/10/16 00:00 IMPRESSION: IMPACTED FRACTURE OF THE DISTAL RADIUS. Cervical Spine CT 09/10/16 11:32 IMPRESSION: CHRONIC DEGENERATIVE CHANGES. NO ACUTE FINDINGS. Chest X-Ray 09/10/16 11:32 IMPRESSION: COPD. NO ACUTE RADIOGRAPHIC FINDING IN THE CHEST. Head CT 09/10/16 11:32 IMPRESSION: CHRONIC CHANGES OF ATROPHY AND MICROVASCULAR ISCHEMIA. NO ACUTE PROCESS. Head MRI 09/10/16 16:45 IMPRESSION: Positive for acute 7 mm lacunar infarction in the posterior left periventricular white matter in the left occipital-parietal region. Carotid Doppler Study 09/11/16 12:35 IMPRESSION: NO HEMODYNAMICALLY SIGNIFICANT STENOSIS at the carotid bifurcations Antegrade pulsatile vertebral artery flow bilaterally Transfer Plan - Disposition Transfer Plan: [facility] be [facility]. - Time Spent with Patient Time spent with patient: Less than 30 Minutes Qualifiers PATEINT BEING DISCHARGED WITH ANY OF THE FOLLOWING DIAGNOSIS?: No Plan Discharge Plan[facility]. Time Spent: Greater than 30 Minutes
[2016-09-13 12:16] VITALS: BP 115/61
--- NOTE | 2016-09-13 12:35 | PSYCHOLOGICAL NOTE ---
Psych Note - Psych Note Psych Note: Patient is an 89-year-old female who has been admitted to [facility] hospitalist services after she presented to the ER do to an unwitnessed fall. Patient was noted to have fractured her wrist after further medical workup patient has an acute CVA on the MRI. Patient is also reportedly diagnosed with dementia with worsening symptoms since her 's this past June. Family reports were noted by hospitalist to include increased symptoms of memory loss and being fearful of strange men and leather seats at night going to her home and her neighbors. Patient's nurse today reports the patient has been doing very well and is very kind. Nurse states the patient's is calm and cooperative with no behavioral outbursts. Nurse states the patient has seemed confused at times and forgot she was in the hospital. During discussion patient does present as a poor historian and is unable to recall where she lives. Patient is very polite and smiles eagerly and reports she enjoys the food here. Patient denies any psychiatric history. Note hospitalist 's H&P states the patient was diagnosed with depression when her in June of this year. Patient denies any psychiatric history at this time. Again patient is considered a poor historian at this time Patient's Daughter, Chito states she does not think that she suffers from hallucinations, but more illusions. Daughter states her father always sat in a particular black recliner. She states there have been times where her mother has seen individuals shrouded in black leather (who she never thought were harmful). She states her father's car is still in the driveway and the interior is dark dumont/black. Daughter states often times she has called her to say she thinks someone is in the car. Daughter states everything that she sees or thinks she sees are connected back to her father (patient's ) . Daughter states as a precautionary, all sharp knives and guns have been removed from the home. Daughter states each night either she or her brother would bring her dinner, sit with her, help her change and get her tucked into bed. Daughter states they would assure her that no one else in the world had a salguero to her home and states she seemed to make her feel safe. Daughter states the patient did deteriorate after June when her father , but initially last year when she had her heart attack as well. Patient was A&O to name and location. Patient's mood was pleasant with smiling affect. Patient denied suicidal/homicidal ideations. Patient denied hearing voices or seeing things. Thought processes were confused at times. Conversational speech was WNL for rate, tone, and prosody. Attention and focus were poor. Insight was poor, judgment, and impulse control were fair. Unspecified Neurocognitive Disorder Patient is psychiatrically cleared for discharge or transfer when deemed medically appropriate. i consulted with Dr. Perez in regards to the care and management of this patient. Hospitalist states he is in agreement with disposition and recommendations.
== END 2016-09-13 17:01 | DRG 65 ==
LOC: ER 11:07 → EH 16:39 → UNDOADMIN 17:43 → EH 17:43 → 4W 22:15
PROVIDERS: ADMIT Internal Medicine; ATTEND Internal Medicine
DX: I63.9 Cerebral infarction, unspecified (principal); S52.501A Unspecified fracture of the lower end of right radius, initial encounter for closed fracture; E03.9 Hypothyroidism, unspecified; F03.90 Unspecified dementia, unspecified severity, without behavioral disturbance, psychotic disturbance, mood disturbance, and anxiety; E11.9 Type 2 diabetes mellitus without complications; I10 Essential (primary) hypertension; J44.9 Chronic obstructive pulmonary disease, unspecified; D64.9 Anemia, unspecified; F32.9 Major depressive disorder, single episode, unspecified; W18.39XA Other fall on same level, initial encounter; I25.10 Atherosclerotic heart disease of native coronary artery without angina pectoris; S80.812A Abrasion, left lower leg, initial encounter; S80.811A Abrasion, right lower leg, initial encounter; Z60.2 Problems related to living alone; I25.2 Old myocardial infarction; Z87.440 Personal history of urinary (tract) infections; Z79.899 Other long term (current) drug therapy
CPT/HCPCS: 36415; 51701; 70450; 70551; 71010; 72125; 80048; 80053; 81001; 82550; 82553; 82962; 83735; 84439; 84443; 84484; 85025; 85027; 85610; 93005; 93010; 93306; 93880; 99285; G8978-GP; G8979-GP; G8990-GO; G8991-GO; J1650; J3490; L0120